=== PATIENT | female | born 1975 | race Caucasian/White ===

== ENCOUNTER 2020-05-29 11:31 | Outpatient (REF) | payer OTHER, SELFPAY ==
[2020-05-29 13:52] LABS: Hematocrit 43.2 % (37-47); Hemoglobin 13.6 g/dl (12.0-16.0); Mean Corpuscular HGB Conc 31.5 g/dl (31.0-35.0); Mean Corpuscular Hemoglobin 28.4 pg (27.0-33.0); Mean Corpuscular Volume 90.2 fL (80-98); Mean Platelet Volume 12.3 fL (9.4-12.3); Platelet Count 201 X10*3/uL (160-400); Red Blood Count 4.79 X10*6/uL (4.20-5.50); Red Cell Distribution Width 12.7 % (11.0-16.0); White Blood Count 6.2 X10*3/uL (4.8-10.8)
[2020-05-29 14:06] LABS: Glucose Urine UA NEG (NEG); Leukocyte Esterase Urine NEG (NEG); Nitrite Urine NEG (NEG); Urine Blood 3+ (NEG); Urine Ketones NEG (NEG); Urine Protein NEG (NEG-TRACE)
[2020-05-29 14:23] LABS: Alanine Aminotransferase 19 U/L (0-31); Albumin Level 3.9 g/dL (3.5-5.0); Alkaline Phosphatase 79 U/L (39-117); Anion Gap 13 (12-20); Aspartate Amino Transferase 26 U/L (5-31); Bilirubin Total 0.4 mg/dL (0.0-1.0); Blood Urea Nitrogen 13 mg/dL (9-16); Calcium 8.6 mg/dL (8.4-10.2); Carbon Dioxide 26 mmol/L (22-29); Chloride 105 mmol/L (96-108); Cholesterol 211 mg/dL; Estimated Glomerular Filt Rate > 60; Glucose Fasting 73 mg/dL (60-99); HDL Cholesterol 79 mg/dL; LDL Cholesterol Calculated 116 mg/dl; Potassium 4.2 mmol/L (3.3-5.1); Sodium 140 mmol/L (135-145); Total Protein 6.6 g/dL (6.5-8.0); Triglycerides 81 mg/dL
[2020-05-29 14:24] LABS: Appearance Urine CLEAR; Color Urine YELLOW
[2020-05-29 15:10] LABS: Bacteria Urine 1+ /LPF; Squamous Epithelial Cell Urine 2+ /LPF; WBC Urine 0-2 /HPF (0-4)
== END 2020-05-29 11:32 | disposition home or self-care (01) ==
LOC: HO.HMGCLDS 11:31
PROVIDERS: PCP Internal Medicine; Visit Provider Internal Medicine
DX: Z00.00 Encounter for general adult medical examination without abnormal findings (principal)
CPT/HCPCS: 36415; 80053; 80061; 81001; 85027

== ENCOUNTER 2021-05-26 06:55 | Outpatient (REF) | payer OTHER, SELFPAY ==
[2021-05-26 11:27] LABS: Hematocrit 43.4 % (37.0-47.0); Hemoglobin 13.7 g/dl (12.0-16.0); Mean Corpuscular HGB Conc 31.6 g/dl (31.0-35.0); Mean Corpuscular Hemoglobin 28.5 pg (27.0-33.0); Mean Corpuscular Volume 90.4 fL (80.0-98.0); Platelet Count 206 X10*3/uL (160-400); Red Cell Distribution Width 12.9 % (11.0-16.0); White Blood Count 5.2 X10*3/uL (4.8-10.8)
[2021-05-26 11:36] LABS: Appearance Urine CLEAR; Color Urine YELLOW; Glucose Urine UA NEG (NEG); Leukocyte Esterase Urine NEG (NEG); Nitrite Urine NEG (NEG); PH 6.5 (5.0-8.0); Specific Gravity - Urine <= 1.005 (1.005-1.025); Urine Blood 2+ (NEG); Urine Ketones NEG (NEG); Urine Protein NEG (NEG-TRACE)
[2021-05-26 11:51] LABS: Bacteria Urine 1+ /LPF; Squamous Epithelial Cell Urine 1+ /LPF; WBC Urine 0-2 /HPF (0-4)
[2021-05-26 13:16] LABS: TSH reflex Free T4 1.72 uIU/mL (0.32-4.0); Vitamin D 25-OH Total 39.8 ng/mL (>30)
[2021-05-26 13:32] LABS: Alanine Aminotransferase 15 U/L (0-31); Albumin Level 3.9 g/dL (3.5-5.0); Alkaline Phosphatase 77 U/L (39-117); Anion Gap 14 (12-20); Aspartate Amino Transferase 23 U/L (5-31); Bilirubin Total 0.4 mg/dL (0.0-1.0); Carbon Dioxide 25 mmol/L (22-29); Cholesterol 227 mg/dL; Estimated Glomerular Filt Rate > 60; Glucose Fasting 81 mg/dL (60-99); HDL Cholesterol 75 mg/dL; LDL Cholesterol Calculated 135 mg/dl; Potassium 4.4 mmol/L (3.3-5.1); Sodium 140 mmol/L (135-145); Total Protein 6.8 g/dL (6.5-8.0); Triglycerides 87 mg/dL
[2021-05-26 14:56] LABS: Blood Urea Nitrogen 16 mg/dL (9-16); Calcium 9.5 mg/dL (8.4-10.2); Chloride 104 mmol/L (96-108)
== END 2021-05-26 06:56 | disposition home or self-care (01) ==
LOC: HO.HMGCLDS 06:55
PROVIDERS: Visit Provider Internal Medicine
DX: Z00.00 Encounter for general adult medical examination without abnormal findings (principal)
CPT/HCPCS: 36415; 80053; 80061; 81001; 82306; 84443; 85027

== ENCOUNTER 2022-08-01 09:08 | Outpatient (REF) | payer OTHER, SELFPAY ==
[2022-08-01 11:30] LABS: Appearance Urine Clear; Color Urine Yellow; Glucose Urine UA Negative (Negative); Leukocyte Esterase Urine Small (1+) (Negative); Nitrite Urine Negative (Negative); Specific Gravity - Urine <= 1.005 (1.005-1.025); UMIC TRIGGER UA YES; Urine Blood Trace (Negative); Urine Ketones Negative (Negative); Urine Protein Negative (Neg-Trace)
[2022-08-01 11:36] LABS: Bacteria Urine Trace (None Seen); Hyaline Casts Urine 0-2 /LPF (0-2); RBC Urine 0-2 /HPF (0-2)
[2022-08-01 11:47] LABS: Hematocrit 43.2 % (37.0-47.0); Hemoglobin 13.8 g/dl (12.0-16.0); Mean Corpuscular HGB Conc 31.9 g/dl (31.0-35.0); Mean Corpuscular Hemoglobin 28.9 pg (27.0-33.0); Mean Corpuscular Volume 90.4 fL (80.0-98.0); Mean Platelet Volume 11.7 fL (9.4-12.3); Platelet Count 191 X10*3/uL (160-400); Red Blood Count 4.78 X10*6/uL (4.20-5.50); Red Cell Distribution Width 13.2 % (11.0-16.0); White Blood Count 4.7 X10*3/uL (4.8-10.8)
[2022-08-01 12:03] LABS: Alanine Aminotransferase 21 U/L (0-31); Albumin Level 3.8 g/dL (3.5-5.0); Alkaline Phosphatase 117 U/L (39-117); Anion Gap 10 (12-20); Aspartate Amino Transferase 24 U/L (5-31); Bilirubin Total 0.4 mg/dL (0.0-1.0); Blood Urea Nitrogen 18 mg/dL (9-16); Carbon Dioxide 25 mmol/L (22-29); Chloride 108 mmol/L (96-108); Cholesterol 200 mg/dL; Estimated Glomerular Filt Rate > 60; Glucose Fasting 74 mg/dL (60-99); HDL Cholesterol 68 mg/dL; LDL Cholesterol Calculated 118 mg/dl; Potassium 4.1 mmol/L (3.3-5.1); Sodium 139 mmol/L (135-145); Total Protein 6.2 g/dL (6.5-8.0); Triglycerides 70 mg/dL
[2022-08-01 12:17] LABS: TSH reflex Free T4 2.06 uIU/mL (0.32-4.0)
== END 2022-08-01 09:09 | disposition home or self-care (01) ==
LOC: HO.HMGCLDS 09:08
PROVIDERS: PCP Internal Medicine; Visit Provider Internal Medicine
DX: Z00.00 Encounter for general adult medical examination without abnormal findings (principal); Z20.2 Contact with and (suspected) exposure to infections with a predominantly sexual mode of transmission
CPT/HCPCS: 36415; 80053; 80061; 81001; 84443; 85027

== ENCOUNTER → 2022-09-16 15:18 | Outpatient (BNVA) | payer OTHER, SELFPAY | PROVIDERS: PCP Internal Medicine; Visit Provider Internal Medicine ==

== ENCOUNTER 2023-01-26 11:53 | Day surgery (SDC) | payer OTHER, SELFPAY ==
[2023-01-20 19:10] VITALS: BMI 31.0
--- NOTE | 2023-01-25 11:43 | HO.ANESPROP2 ---
Documented by User: Khloe Chamberlain NP 01/25/23 11:44 HPI - Anesthesia Eval Consult details Narrative: 47yo F for Colonoscopy PMFSH Active Problems Active Problems: All Active Problems (Updated 01/25/23 @ 11:01 by Jackie Lawler) Colon cancer screening (Acute) Vitamin D deficiency (Acute) Microscopic hematuria (Acute) Normal Pap smear (Acute) Mammogram normal (Acute) Annual physical exam (Acute) Past Medical History Medical History Seasonal allergies Microscopic hematuria Normal Pap smear Mammogram normal Melasma Annual physical exam Family History Family History Father ALS (amyotrophic lateral sclerosis) Mother Diabetes mellitus Mental health disorder Maternal Grandmother Gastric cancer Maternal Grandfather No problems noted. Paternal Grandmother Lung cancer Family/Other Colon cancer Surgical History Surgical History Hx of toe surgery Hx of wisdom tooth extraction Social History Social History Housing: House Alcohol intake: never Patient Tobacco Use Status: Never used Tobacco e-Cigarette/Vaping Use: Never Used Use of substances other than those prescribed or required for medical reasons: No Are you DNR?: No Advance Directives: No Advance Directives Information Provided: Yes Advance Directives on File: No Recently lost weight without trying: No Nutrition Risks: No Nutritional Risk Patient : No Current occupational status: employed Cognitive needs: No Hearing needs: No Vision needs: No Meds Allergies Allergy/AdvReac Type Severity Reaction Status Date / Time penicillin V Allergy Unknown Hives Verified 01/26/23 13:12 Home Medications Medication Instructions Recorded Confirmed Last Taken Type multivitamin 1 tab PO DAILY 08/05/21 01/20/23 Unknown History cholecalciferol (vitamin D3) 50 50 mcg PO DAILY 08/08/22 01/20/23 Unknown History mcg (2,000 unit) capsule berberine-herbal comb no.18 capsule 1 cap PO DAILY 01/20/23 01/20/23 Unknown History estradiol 0.05 mg/24 hr weekly 1 patch transdermal QWEEK 01/20/23 01/20/23 Unknown History transdermal patch magnesium glycinate 100 mg tablet 100 mg PO DAILY 01/20/23 01/20/23 Unknown History progesterone micronized 100 mg 100 mg PO DAILY 01/20/23 01/20/23 Unknown History capsule Exam Exam Date and Time: January 25, 2023 1143 Height,Weight and Vital Signs: Height 5 ft 3 in Weight 79.379 kg Assessment and Plan Assessment Anesthesia Assessment: Chart Reviewed Documented by User: Barrett Fitzgerald MD 01/26/23 14:28 [facility] Past Medical History Medical History Seasonal allergies Microscopic hematuria Normal Pap smear Mammogram normal Melasma Annual physical exam Family History Family History Father ALS (amyotrophic lateral sclerosis) Mother Diabetes mellitus Mental health disorder Maternal Grandmother Gastric cancer Maternal Grandfather No problems noted. Paternal Grandmother Lung cancer Family/Other Colon cancer Family history of problems with anesthesia: No Surgical History Surgical History Hx of toe surgery Hx of wisdom tooth extraction History of Problems with Anesthesia: No Social History Social History Housing: House Alcohol intake: never Patient Tobacco Use Status: Never used Tobacco e-Cigarette/Vaping Use: Never Used Use of substances other than those prescribed or required for medical reasons: No Are you DNR?: No Advance Directives: No Advance Directives Information Provided: Yes Advance Directives on File: No Recently lost weight without trying: No Nutrition Risks: No Nutritional Risk Patient : No Current occupational status: employed Cognitive needs: No Hearing needs: No Vision needs: No Meds Allergies Allergy/AdvReac Type Severity Reaction Status Date / Time penicillin V Allergy Unknown Hives Verified 01/26/23 13:12 Home Medications Medication Instructions Recorded Confirmed Last Taken Type multivitamin 1 tab PO DAILY 08/05/21 01/20/23 Unknown History cholecalciferol (vitamin D3) 50 50 mcg PO DAILY 08/08/22 01/20/23 Unknown History mcg (2,000 unit) capsule berberine-herbal comb no.18 capsule 1 cap PO DAILY 01/20/23 01/20/23 Unknown History estradiol 0.05 mg/24 hr weekly 1 patch transdermal QWEEK 01/20/23 01/20/23 Unknown History transdermal patch magnesium glycinate 100 mg tablet 100 mg PO DAILY 01/20/23 01/20/23 Unknown History progesterone micronized 100 mg 100 mg PO DAILY 01/20/23 01/20/23 Unknown History capsule Exam Airway Mallampati Class: II TM Dist: >3cm Neck ROM: Full Heart: rrr Lungs: cta Assessment and Plan Assessment Anesthesia Assessment: Anesthesia Plan Discussed Final Anesthetic Review Family History of Problems with Anesthesia: No History of Problems with Anesthesia: No NPO: Yes ASA Class: II Final Preanesthetic Review: No Changes in Pt Med Stat, Meds/Allgs Chart Reviewed, Consent Obtained/Reviewed and Anes Risks/Benef Reviewed Patient Risk: Intermediate Procedure Risk: Low Anesthetic Plan Anesthetic Plan: MAC: and Agree w/ Assess. and Plan Disposition: Standard PACU
[2023-01-26 12:27] LABS: UPreg QC Valid YES; Urine Pregnancy NEGATIVE (NEGATIVE)
[2023-01-26 13:09] VITALS: BP 136/64; PULSE 67; RESP 16; TEMP 36.4; O2SAT 100
[2023-01-26] MEDS: Lactated Ringers 1,000 ML 100 ML IVCONT (13:31)
--- NOTE | 2023-01-26 15:22 | MHC.SHP ---
Pre-Procedural Eval Section A Date of Service: 01/26/23 Section B Chief Complaint: Encounter for screening for malignant neoplasm Relevant Family History (Specify if Yes): No Relevant Social History: None Present Medications: see Short Stay Collaborative assessment Medical History: No relevant PMH History of Previous Operations: No relevant previous surgery Allergies: Allergies Allergy/AdvReac Type Severity Reaction Status Date / Time penicillin V Allergy Unknown Hives Verified 01/26/23 13:12 Review of Systems Review of Systems Comment: Ten point ROS negative Exam Exam Comment: Gen appear: No acute distress HEENT: no icterus Chest: No overt resp distress Abd: soft, nontender, nondistended Psych: Stable affect, answering questions appropriately Neuro: A/Ox3 noted to move all extremities spontaneously Ext: no peripheral edema Plan Diagnosis/Plan: Unchanged I have reviewed the history and physical and performed a pertinent physical examination on my patient. No changes have occurred unless specified. Time Spent With Patient Time: Total time managing care of this patient today ____ minutes.
--- NOTE | 2023-01-26 15:53 | P.OP_ITS ---
Operative Note Operative Note Date of Service: 01/26/23 Narrative: Procedure: Colonoscopy 3 Indication: Screening Endoscopist: Nhi Mc MD Anesthesia Provider: Dr Zamora Anesthesia type: MAC Instrument: Olympus [id number]-[id number] Consent: Indication, risks vs benefits, and alternatives were discussed with the patient who gave written informed consent to proceed. EKG, pulse, pulse oximetry and blood pressure were monitored throughout the procedure. Please see anesthesia flowsheet. Procedure: The patient was brought to the procedure room and placed in the left lateral decubitus position. IV medications were administered by the anesthesia provider in attendance. A digital rectal exam was performed which was normal. A distal attachment cap was affixed to the tip of the scope and the colonoscope was then inserted through the anus and advanced through the colon to the cecum at 80 cm,and terminal ileum. Mucosa was carefully examined under high definition white light as the instrument was slowly withdrawn in a retrograde panoramic fashion. Retroflexion was performed in rectum. The procedure was not difficult. There were no immediate obvious complications. The quality of the prep was BBPS: 2+3+3 = adequate Withdrawal time 8 minutes. Limitations: No limitations. Findings: Mucosa: Normal to cecum and terminal ileum. Protruding lesions: * Medium internal hemorrhoids [without] stigmata of recent bleeding. Impression: 1. Normal colon and terminal ileum mucosa 2. Internal hemorrhoids Recommendations: - Repeat colonoscopy in 10 years
[2023-01-26 16:01] VITALS: BP 108/41; PULSE 73; RESP 16; TEMP 36.2; O2SAT 98
[2023-01-26 16:16] VITALS: BP 113/67; PULSE 68; RESP 14; TEMP 36.4; O2SAT 100
[2023-01-26 16:31] VITALS: BP 117/70; PULSE 69; RESP 16; TEMP 36.4; O2SAT 100
== END 2023-01-26 16:32 | disposition home or self-care (01) ==
PROVIDERS: Nurse Practitioner; PCP Internal Medicine; Visit Provider Internal Medicine
PROC: 0DJD8ZZ Inspection of Lower Intestinal Tract, Via Natural or Artificial Opening Endoscopic (ICD-10-PCS; CPT 45378; principal; 2023-01-26 13:50)
DX: Z12.11 Encounter for screening for malignant neoplasm of colon (principal); K64.8 Other hemorrhoids; E55.9 Vitamin D deficiency, unspecified; L81.1 Chloasma; Z79.899 Other long term (current) drug therapy; Z88.0 Allergy status to penicillin
CPT/HCPCS: 45378; 81025

== ENCOUNTER → 2023-01-26 11:53 | Outpatient (BNV) | payer OTHER, SELFPAY | PROVIDERS: PCP Internal Medicine; Visit Provider Internal Medicine | DX: Z12.11 Encounter for screening for malignant neoplasm of colon (principal); K64.8 Other hemorrhoids | CPT/HCPCS: 45378 ==

== ENCOUNTER 2023-08-02 07:31 | Outpatient (REF) | payer OTHER, SELFPAY ==
[2023-08-02 10:20] LABS: MANUAL DIFF FLAG NO
[2023-08-02 10:38] LABS: Basophils Percent Auto 0.2 % (0-2); Eosinophils Absolute Auto 0.1 X10*3/uL (0.0-0.4); Eosinophils Percent Auto 1.9 % (0-4); Hematocrit 44.5 % (37.0-47.0); Hemoglobin 14.5 g/dl (12.0-16.0); Imm Gran Abs Auto 0.01 X10*3/uL (0.00-0.03); Imm Gran Pct Auto 0.2 % (0.0-0.4); Lymphocytes Absolute Auto 1.6 X10*3/uL (1.2-4.9); Mean Corpuscular HGB Conc 32.6 g/dl (31.0-35.0); Mean Corpuscular Hemoglobin 29.6 pg (27.0-33.0); Mean Corpuscular Volume 90.8 fL (80.0-98.0); Mean Platelet Volume 11.5 fL (9.4-12.3); Monocytes Absolute Auto 0.3 X10*3/uL (0.1-1.2); Monocytes Percent Auto 5.5 % (2-11); Neutrophils Absolute Auto 2.7 x10*3/uL (2.0-8.3); Neutrophils Percent Auto 57.2 % (45-73); Platelet Count 185 X10*3/uL (160-400); Red Cell Distribution Width 12.9 % (11.0-16.0); White Blood Count 4.7 X10*3/uL (4.8-10.8)
[2023-08-02 10:50] LABS: Alanine Aminotransferase 21 U/L (0-31); Alkaline Phosphatase 91 U/L (39-117); Anion Gap 10 (12-20); Aspartate Amino Transferase 24 U/L (5-31); Bilirubin Total 0.4 mg/dL (0.0-1.0); Blood Urea Nitrogen 15 mg/dL (9-16); Calcium 9.3 mg/dL (8.4-10.2); Carbon Dioxide 28 mmol/L (22-29); Chloride 105 mmol/L (96-108); Cholesterol 195 mg/dL (<200); Estimated Glomerular Filt Rate > 60; Glucose Fasting 76 mg/dL (60-99); HDL Cholesterol 66 mg/dL (>40); LDL Cholesterol Calculated 117 mg/dL (<100); Sodium 139 mmol/L (135-145); Total Protein 7.1 g/dL (6.5-8.0); Triglycerides 60 mg/dL (<150)
[2023-08-02 11:25] LABS: TSH reflex Free T4 2.13 uIU/mL (0.32-4.0); Vitamin D 25-OH Total 49.4 ng/mL (>30)
== END 2023-08-02 07:32 | disposition home or self-care (01) ==
LOC: HO.HMGCLDS 07:31
PROVIDERS: PCP Internal Medicine; Visit Provider Internal Medicine
DX: Z00.00 Encounter for general adult medical examination without abnormal findings (principal); Z13.6 Encounter for screening for cardiovascular disorders; E55.9 Vitamin D deficiency, unspecified
CPT/HCPCS: 36415; 80053; 80061; 82306; 84443; 85025

== ENCOUNTER 2023-08-14 10:14 | Outpatient (AMB) | payer OTHER, SELFPAY ==
[2023-08-14 10:50] VITALS: BP 120/80; PULSE 78; O2SAT 100; BMI 31.6
--- NOTE | 2023-08-14 10:50 | MHC.PC.OV ---
Vital Signs 08/14/23 10:50 Height 5 ft 3 in Weight 178 lb 4 oz BMI 31.6 BP 120/80 Blood Pressure Location Lt brachial Position Sitting Pulse 78 Pulse Source Pulse Oximeter Pulse Oximetry (%) 100 Oxygen Delivery Method Room Air Intake Visit Reasons: annual follow up Allergies penicillin V Allergy (Unknown, Verified 08/14/23 10:52) Hives Medication List - Last Reconciled 08/14/23 by Nichelle Blanton MD cholecalciferol (vitamin D3) 50 mcg PO DAILY estradiol 1 patch transdermal QWEEK magnesium glycinate 200 mg PO DAILY multivitamin 1 tab PO DAILY progesterone micronized 100 mg PO DAILY Tobacco use date assessed: 08/14/23 Dental Screening Dental Screen Date: 08/14/23 Did you have a dental visit in the last 12 months?: Yes Did you have a dental problem in the last 6 months where you did not have access to dental care?: No Was dental information given to patient?: Patient has dentist HPI annual follow up HPI Details Pt presents for PE. Patient is concerned about not being able to lose weight. She had tried weight management program with nutritional support and is considering semaglutide injections. [facility] Medical History Seasonal allergies Microscopic hematuria Normal Pap smear Mammogram normal Melasma Annual physical exam Surgical History Hx of toe surgery Hx of wisdom tooth extraction Family History Father ALS (amyotrophic lateral sclerosis) Mother Diabetes mellitus Mental health disorder Maternal Grandmother Gastric cancer Maternal Grandfather No problems noted. Paternal Grandmother Lung cancer Family/Other Colon cancer Social History Housing: House Alcohol intake: never Patient Tobacco Use Status: Never used Tobacco e-Cigarette/Vaping Use: Never Used Current occupational status: employed Cognitive needs: No Hearing needs: No Vision needs: No Questionnaire PHQ-9 Over the last 2 weeks, how often have you been bothered by any of the following problems? 1. Little interest or pleasure in doing things: not at all 2. Feeling down, depressed, or hopeless: not at all 3. Trouble falling or staying asleep, or sleeping too much: not at all 4. Feeling tired or having little energy: not at all 5. Poor appetite or overeating: not at all 6. Feeling bad about yourself - or that you are a failure or have let yourself or your family down: not at all 7. Trouble concentrating on things, such as reading the newspaper or watching television: not at all 8. Moving or speaking so slowly that other people could have noticed. Or the opposite - being so fidgety or restless that you have been moving around a lot more than usual: not at all 9. Thoughts that you would be better off or of hurting yourself in some way: not at all Total score: 0 Depression Screening Interpretation: Negative Depression Screening Done: Yes Source: Developed by Drs. Hu Pritchett, Tabitha Ribera, Henry Parks and colleagues, with an educational fabien from [employer] Thrive Questionnaire Date Thrive assessed: 08/08/22 AUDIT C Alcohol Use Questionnaire (AUDIT-C) 1. How often do you have a drink containing alcohol?: Never 3. How often do you have six or more drinks on one occasion?: Never Total Score: 0 Score Reviewed/Action Taken: Yes MARQUEZ-7 AMB Questionnaire MARQUEZ-7 Date MARQUEZ - 7 assessed: 08/08/22 Source: Developed by Drs. Hu Pritchett, Tabitha Ribera, Henry Parks and colleagues, with an educational fabien from [employer] Review of Systems Const All systems reviewed & are unremarkable except as noted in HPI and below Reports no additional complaints Eyes Reports no additional complaints ENT Reports no additional complaints Card Reports no additional complaints Resp Reports no additional complaints GI Reports no additional complaints Reports no additional complaints Musc Reports no additional complaints Physical exam (Primary Care) Vital Signs: Last Vital Signs Pulse 78 08/14/23 10:50 BP 120/80 08/14/23 10:50 Pulse Ox 100 08/14/23 10:50 Oxygen Delivery Method Room Air 08/14/23 10:50 BMI result Body Mass Index 31.6 Tobacco/Smoking Status: Tobacco use Status Tobacco use date assessed 08/14/23 08/14/23 10:56 Patient Tobacco Use Status Never used Tobacco 08/14/23 10:56 e-Cigarette/Vaping Use Never Used 08/14/23 10:56 Depression Screening Interpretation: Negative Thrive Assessment: Date of Thrive Assessment Date Thrive assessed 08/08/22 08/14/23 10:56 Const General: no acute distress HENMT Head: Yes normal to inspection and Yes contusion Ears: hearing grossly normal bilaterally General nose exam: Normal external nose present Mouth: Normal oral and palatal mucosa present Throat: Yes posterior oropharynx normal Eyes General: appearance normal, both eyes and all related structures Neck Neck: Yes no lymphadenopathy and Yes supple Resp Effort & Inspection: normal respiratory effort Auscultation: clear to auscultation bilaterally Cardio Rhythm: regular rhythm Heart sounds: S1 normal heart sound present and S2 normal heart sound present GI Inspection: Yes normal to inspection Palpation (GI): Soft to palpation Percussion: Yes normal to percussion Auscultation: normal bowel sounds Assessment and Plan Assessment & Plan (1) Mammogram normal: Comment: 2023 [facility] (2) Normal Pap smear: Comment: [employer] 2020, 2021 (3) Colon cancer screening: Comment: colonoscopy 01/2023 Code(s): Z12.11 - Encounter for screening for malignant neoplasm of colon (4) Annual physical exam: Code(s): Z00.00 - Encounter for general adult medical examination without abnormal findings Plan: Well-balanced diet regular exercise discussed with the patient she is up-to-date with mammogram colonoscopy and 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 Physical in 1 year Orders: Orders TSH reflex Free T4 1 Year Z00.00 - Encounter for general adult medical examination without abnormal findings Comprehensive [place]. Panel Fast 1 Year Z00.00 - Encounter for general adult medical examination without abnormal findings Complete Blood Count Auto Diff 1 Year Z00.00 - Encounter for general adult medical examination without abnormal findings Lipid Panel 1 Year Z00.00 - Encounter for general adult medical examination without abnormal findings Vitamin D 25-OH Total 1 Year Z00.00 - Encounter for general adult medical examination without abnormal findings Coding Level of Care Code Est Pt Prev Care 40-64y(92243) Diagnoses Mammogram normal Normal Pap smear Z12.4 Colon cancer screening Z12.11 Annual physical exam Z00.00
== END 2023-08-14 11:37 | disposition home or self-care (01) ==
PROVIDERS: Visit Provider Internal Medicine
DX: Z12.4 Encounter for screening for malignant neoplasm of cervix (principal); Z12.11 Encounter for screening for malignant neoplasm of colon; Z00.00 Encounter for general adult medical examination without abnormal findings
CPT/HCPCS: 99396

== ENCOUNTER 2024-08-28 07:39 | Outpatient (REF) | payer OTHER, SELFPAY ==
[2024-08-28 09:50] LABS: MANUAL DIFF FLAG NO
[2024-08-28 10:06] LABS: Basophils Percent Auto 0.2 % (0-2); Eosinophils Absolute Auto 0.1 X10*3/uL (0.0-0.4); Eosinophils Percent Auto 1.9 % (0-4); Hematocrit 42.9 % (37.0-47.0); Hemoglobin 13.8 g/dl (12.0-16.0); Imm Gran Abs Auto 0.01 X10*3/uL (0.00-0.03); Imm Gran Pct Auto 0.2 % (0.0-0.4); Lymphocytes Absolute Auto 1.4 X10*3/uL (1.2-4.9); Mean Corpuscular HGB Conc 32.2 g/dl (31.0-35.0); Mean Corpuscular Hemoglobin 29.1 pg (27.0-33.0); Mean Corpuscular Volume 90.5 fL (80.0-98.0); Mean Platelet Volume 11.5 fL (9.4-12.3); Monocytes Absolute Auto 0.3 X10*3/uL (0.1-1.2); Monocytes Percent Auto 5.3 % (2-11); Neutrophils Percent Auto 62.4 % (45-73); Platelet Count 202 X10*3/uL (160-400); Red Blood Count 4.74 X10*6/uL (4.20-5.50); Red Cell Distribution Width 12.6 % (11.0-16.0); White Blood Count 4.7 X10*3/uL (4.8-10.8)
[2024-08-28 10:57] LABS: Alanine Aminotransferase 22 U/L (0-31); Albumin Level 4.1 g/dL (3.5-5.0); Alkaline Phosphatase 74 U/L (39-117); Anion Gap 14 (12-20); Aspartate Amino Transferase 30 U/L (5-31); Bilirubin Total 0.4 mg/dL (0.0-1.0); Blood Urea Nitrogen 18 mg/dL (9-16); Calcium 8.9 mg/dL (8.4-10.2); Carbon Dioxide 24 mmol/L (22-29); Chloride 105 mmol/L (96-108); Cholesterol 167 mg/dL (<200); Estimated Glomerular Filt Rate > 60; Glucose Fasting 79 mg/dL (60-99); HDL Cholesterol 62 mg/dL (>40); LDL Cholesterol Calculated 98 mg/dL (<100); Sodium 139 mmol/L (135-145); TSH reflex Free T4 1.74 uIU/mL (0.32-4.0); Triglycerides 37 mg/dL (<150); Vitamin D 25-OH Total 49.7 ng/mL (>30)
== END 2024-08-28 07:40 | disposition home or self-care (01) ==
LOC: HO.HMGCLDS 07:39
PROVIDERS: PCP Internal Medicine; Visit Provider Internal Medicine
DX: Z00.00 Encounter for general adult medical examination without abnormal findings (principal); Z13.6 Encounter for screening for cardiovascular disorders
CPT/HCPCS: 36415; 80053; 80061; 82306; 84443; 85025

== ENCOUNTER 2024-09-06 08:28 | Outpatient (AMB) | payer OTHER, SELFPAY ==
--- NOTE | 2024-09-06 08:31 | A.OFFPC_ITS ---
Vital Signs 09/06/24 08:33 Height 5 ft 3 in Weight 173 lb BMI 30.6 BP 112/80 Blood Pressure Location Lt brachial Position Sitting Respiration 20 Pulse 79 Pulse Source Pulse Oximeter Temp 98.1 F Temp Source Oral Pulse Oximetry (%) 99 Intake Visit Reasons: Annual PE Intake Note: Pt is here today for her PE Allergies penicillin V Allergy (Unknown, Verified 09/06/24 08:31) Hives Medication List - Last Reconciled 09/06/24 by Nichelle Blanton MD cholecalciferol (vitamin D3) 50 mcg PO DAILY estradiol 1 patch transdermal QWEEK magnesium glycinate 200 mg PO DAILY mecobalamin (vitamin B12) mcg PO multivitamin 1 tab PO DAILY progesterone micronized 100 mg PO DAILY semaglutide (weight loss) (Wegovy) 0.25 mg subcut QWEEK Tobacco use date assessed: 09/06/24 Dental Screening Dental Screen Date: 09/06/24 Did you have a dental visit in the last 12 months?: Yes Did you have a dental problem in the last 6 months where you did not have access to dental care?: No Was dental information given to patient?: Patient has dentist HPI Annual PE HPI Details Pt presents for PE. Pt c/o LBP left side ache on and off for 2 weeks, worse after sitting for long time in a chair. Patient denies abdominal pain pain radiating to lower extremities change in bowel or bladder habits. She has been in weight management program for the last 6 months and was started on Wegovy. She lost 13 lbs. Patient has been exercising 3 times a week. [facility] Medical History (Updated 09/06/24 @ 19:03 by Nichelle Blanton MD) Seasonal allergies Microscopic hematuria Normal Pap smear Mammogram normal Melasma Annual physical exam Surgical History (Updated 09/06/24 @ 19:03 by Nichelle Blanton MD) Hx of colonoscopy Hx of toe surgery Hx of wisdom tooth extraction Family History Father ALS (amyotrophic lateral sclerosis) Mother Diabetes mellitus Mental health disorder Maternal Grandmother Gastric cancer Maternal Grandfather No problems noted. Paternal Grandmother Lung cancer Family/Other Colon cancer Social History Housing: House Alcohol intake: never Patient Tobacco Use Status: Never used Tobacco e-Cigarette/Vaping Use: Never Used Current occupational status: employed Cognitive needs: No Hearing needs: No Vision needs: No Questionnaire PHQ-9 Over the last 2 weeks, how often have you been bothered by any of the following problems? 1. Little interest or pleasure in doing things: not at all 2. Feeling down, depressed, or hopeless: not at all 3. Trouble falling or staying asleep, or sleeping too much: not at all 4. Feeling tired or having little energy: not at all 5. Poor appetite or overeating: not at all 6. Feeling bad about yourself - or that you are a failure or have let yourself or your family down: not at all 7. Trouble concentrating on things, such as reading the newspaper or watching television: not at all 8. Moving or speaking so slowly that other people could have noticed. Or the opposite - being so fidgety or restless that you have been moving around a lot more than usual: not at all 9. Thoughts that you would be better off or of hurting yourself in some way: not at all Total score: 0 Depression Screening Interpretation: Negative Depression Screening Done: Yes 75034 - PHQ-9 Billing: Yes Source: Developed by Drs. Hu Pritchett, Tabitha Ribera, Henry Parks and colleagues, with an educational fabien from [employer]. Thrive Questionnaire Date Thrive assessed: 09/06/24 I am a: Patient What is your living situation today?: I have a steady place to live Within the past 12 months, did the food you bought not last and you didn't have the money to get more?: Never true Within the past 12 months, did you worry whether your food would run out before you got money to buy more?: Never true Do you have trouble paying for medicines?: No Do you have trouble getting transportation to medical appointments?: No Do you have trouble paying your heating and electricity bill?: No Do you have trouble taking care of your child, family member or friend?: No Do you have trouble with day-to-day activities such as bathing, preparing meals, shopping, managing finances, etc.?: No Are you currently unemployed and looking for a job?: No Are you interested in more education?: No Please select the resources that you would like help with: None Currently or been in a relationship where the following occur: No concerns reported THRIVE Score: 0 AUDIT C Alcohol Use Questionnaire (AUDIT-C) 1. How often do you have a drink containing alcohol?: Never Total Score: 0 MARQUEZ-7 AMB Questionnaire MARQUEZ-7 Date MARQUEZ - 7 assessed: 09/06/24 Feeling nervous, anxious, or on edge: 0 = Not at all Not being able to stop or control worryin = Not at all Worrying too much about different things: 0 = Not at all Trouble relaxin = Not at all Being so restless that it is hard to sit still: 0 = Not at all Becoming easily annoyed or irritable: 0 = Not at all Feeling afraid as if something awful might happen: 0 = Not at all Total MARQUEZ-7 score (0-4 normal; 5-9 mild; 10-14 moderate; 15-21 severe): 0 Source: Developed by Drs. Hu Pritchett, Tabitha Ribera, Henry Parks and colleagues, with an educational fabien from [employer]. Review of Systems Const All systems reviewed & are unremarkable except as noted in HPI and below Eyes Reports no additional complaints Card Reports no additional complaints Resp Reports no additional complaints GI Reports no additional complaints Reports no additional complaints Physical exam (Primary Care) Vital Signs: Last Vital Signs Temp 98.1 F 09/06/24 08:33 Pulse 79 09/06/24 08:33 Resp 20 09/06/24 08:33 BP 112/80 09/06/24 08:33 Pulse Ox 99 09/06/24 08:33 BMI result Body Mass Index 30.6 Tobacco/Smoking Status: Tobacco use Status Tobacco use date assessed 09/06/24 09/06/24 08:37 Patient Tobacco Use Status Never used Tobacco 09/06/24 08:37 e-Cigarette/Vaping Use Never Used 09/06/24 08:37 PHQ-9: PHQ-9 Score PHQ-9: Total score 0 09/06/24 08:48 Depression Screening Interpretation: Negative Thrive Assessment: Date of Thrive Assessment Date Thrive assessed 09/06/24 09/06/24 08:37 Currently or been in a relationship where the following occur: No concerns reported Const General: no acute distress HENMT Head: Yes normal to inspection Mouth: Normal oral and palatal mucosa present Eyes General: appearance normal, both eyes and all related structures Neck Neck: Yes no lymphadenopathy and Yes supple Resp Effort & Inspection: normal respiratory effort Auscultation: clear to auscultation bilaterally Cardio Rhythm: regular rhythm Heart sounds: S1 normal heart sound present and S2 normal heart sound present GI Inspection: Yes normal to inspection Palpation (GI): Soft to palpation Percussion: Yes normal to percussion Auscultation: normal bowel sounds General: Yes no CVA tenderness Back/Spine/Pelvis Back: no CVA tenderness Thoracic/Lumbar Spine: thoracic and lumbar spine normal to inspection, No paraspinal muscle tenderness and No lumbar spinal tenderness Coding Level of Care Code Est Pt Prev Care 40-64y(27804) Diagnoses Annual physical exam Z00.00 Microscopic hematuria R31.29 Overweight E66.3 Additional Codes PHQ-9 - 13123 - PHQ-9 Billing: Yes ([id number]) Assessment & Plan Assessment & Plan (1) Annual physical exam: Code(s): Z00.00 - Encounter for general adult medical examination without abnormal f indings Category: Medical Plan: Well-balanced diet regular exercise decreasing caloric intake discussed with the patient. She is up-to-date with the mammogram, Pap smear by button pusher and colonoscopy (2) Microscopic hematuria: Code(s): R31.29 - Other microscopic hematuria Category: Medical Plan: Repeat UA and obtain renal ultrasound (3) Overweight: Comment: in weight management Code(s): E66.3 - Overweight Category: Medical Plan: On Wegovy Orders: Orders UA w Microscopic Today R31.29 - Other microscopic hematuria, Z00.00 - Encounter for general adult medical examination without abnormal findings Comprehensive [place]. Panel Fast 1 Year E55.9 - Vitamin D deficiency, unspecified, Z00.00 - Encounter for general adult medical examination without abnormal findings Complete Blood Count Auto Diff 1 Year E55.9 - Vitamin D deficiency, unspecified, Z00.00 - Encounter for general adult medical examination without abnormal findings Lipid Panel 1 Year E55.9 - Vitamin D deficiency, unspecified, Z00.00 - Encounter for general adult medical examination without abnormal findings Vitamin D 25-OH Total 1 Year E55.9 - Vitamin D deficiency, unspecified, Z00.00 - Encounter for general adult medical examination without abnormal findings US renal BI Today R31.29 - Other microscopic hematuria, Z00.00 - Encounter for general adult medical examination without abnormal findings TSH reflex Free T4 1 Year E55.9 - Vitamin D deficiency, unspecified, Z00.00 - Encounter for general adult medical examination without abnormal findings
[2024-09-06 08:33] VITALS: BP 112/80; PULSE 79; RESP 20; TEMP 36.7; O2SAT 99; BMI 30.6
--- OUTSIDE RECORDS SUMMARY | 2024-09-06 08:36 | XMS_ITS | Patient Health Record ---
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 Name Role Phone Nichelle Blanton Primary Care Provider BRADLEY Pringle Unavailable [phone] Allergies Allergen (clinical drug ingredient) Drug/Non Drug Allergy documented on EMR Reaction Allergy Type Onset Date Status Penicillin Unknown Drug Allergy Active Results Component Value Reference Range Notes TSH+T3+Free T4+T3 Free Reviewed date:07/29/2024 08:17:59 AM Interpretation: Performing Lab:[facility] [place], [address] [facility], Phone - [phone], Director - MDJodry Notes/Report: TSH-ICMA 2.0 Reference Range: Non- Adult 0.450-4.500 First Trimester 0.100-4.000 Second Trimester 0.200-4.000 Third Trimester 0.300-4.500 Triiodothyronine (T-3), Serum 90 Reference Range: Adults: 55 - 170 Free T-3 2.8 Reference Range: >=20y: 2.0 - 4.4 Free T4 by Dialysis/Sky Cap 1.2 This test was developed and its performance characteristics determined by [facility]. It has not been cleared or approved by the Food and Drug Administration. Reference Range: Pubertal Children and Adults: 0.8 - 1.7 Comp. Metabolic Panel (14)-[id number] Reviewed date:07/29/2024 08:17:59 AM Interpretation: Performing Lab:[facility] [place], [address], [place], Phone - [phone], Director - MDJodry Notes/Report: Glucose 84 70-99 mg/dL BUN 20 6-24 mg/dL Creatinine 0.67 0.57-1.00 mg/dL eGFR 106 >59 mL/min/1.73 BUN/Creatinine Ratio 30 9-23 Sodium 140 134-144 mmol/L Potassium 4.5 3.5-5.2 mmol/L Chloride 104 96-106 mmol/L Carbon Dioxide, Total 21 20-29 mmol/L Calcium 9.2 8.7-10.2 mg/dL Protein, Total 6.5 6.0-8.5 g/dL Albumin 4.1 3.8-4.9 g/dL Globulin, Total 2.4 1.5-4.5 g/dL Bilirubin, Total 0.3 0.0-1.2 mg/dL Alkaline Phosphatase 86 44-121 IU/L AST (SGOT) 26 0-40 IU/L ALT (SGPT) 19 0-32 IU/L CBC With Differential/Platel et-[id number] Reviewed date:07/29/2024 08:17:59 AM Interpretation: Performing Lab:[facility] [place], [address], [place], Phone - [phone], Director - Nayla Notes/Report: WBC 4.3 3.4-10.8 x10E3/uL RBC 4.73 3.77-5.28 x10E6/uL Hemoglobin 13.8 11.1-15.9 g/dL Hematocrit 42.2 34.0-46.6 % MCV 89 79-97 fL MCH 29.2 26.6-33.0 pg MCHC 32.7 31.5-35.7 g/dL RDW 12.3 11.7-15.4 % Platelets 197 150-450 x10E3/uL Neutrophils 59 Not Estab. % Lymphs 33 Not Estab. % Monocytes 7 Not Estab. % Eos 1 Not Estab. % Basos 0 Not Estab. % Neutrophils (Absolute) 2.5 1.4-7.0 x10E3/uL Lymphs (Absolute) 1.4 0.7-3.1 x10E3/uL Monocytes(Absolute) 0.3 0.1-0.9 x10E3/uL Eos (Absolute) 0.1 0.0-0.4 x10E3/uL Baso (Absolute) 0.0 0.0-0.2 x10E3/uL Immature Granulocytes 0 Not Estab. % Immature Grans (Abs) 0.0 0.0-0.1 x10E3/uL Hemoglobin [id number] Reviewed date:07/29/2024 08:17:59 AM Interpretation: Performing Lab:[facility], [address], [place], Phone - [phone], Director - Nayla Notes/Report: Hemoglobin A1c 5.3 4.8-5.6 % . Prediabetes: 5.7 - 6.4 Diabetes: >6.4 Glycemic control for adults with diabetes: <7.0 Reason For Referral No Information Medications Medication SIG (Take, Route, Frequency, Duration) Notes Start Date End Date Status B12 Active Lincoln 3 Active Wegovy 0.25 MG/0.5ML 0.5 ML SUBCUTANEOUS LY ONE TIME PER WEEK for 28 Active Vitamin D3 50 MCG (1999) 1 capsule Orally Once a day Active Estradiol 0.05 MG/24HR APPLY 1 PATCH BY TRANSDERMAL ROUTE EVERY WEEK Transdermal for 84 Days Active Multi For Her Active Magnesium Glycinate 400mg qd Active Ondansetron HCl 4 MG 1 tablet Orally Onc e a day for 30 days 06/27/2024 Active Progesterone 100 MG TAKE 1 CAPSULE BY UT EVERY DAY Oral for 90 Days Active Social History Tobacco Use: Social History Observation Description Date Details (start date - stop date) Never Smoker NA - NA Tobacco Use/Smoking Question Answer Notes Are you a nonsmoker Problems Problem Type SNOMED Code ICD Code Onset Dates Problem Status W/U Status Risk Notes Problem Adult health examination (278443596) Adult general medical exam (Z00.00) Active confirmed Problem Diabetes mellitus screening (521285155) Diabetes mellitus screening (Z13.1) Active confirmed Problem 069833928 Obesity (BMI 30-39.9) (E66.9) Active confirmed Problem 490229660 BMI 31.0-31.9,adult (Z68.31) Active confirmed Problem 971139885 BMI 30.0-30.9,adult (Z68.30) Active confirmed Problem 043629169 Overweight (BMI 25.0-29.9) (E66.3) Active confirmed Problem Endocrine/metabo lic screening (472874270) Encounter for screening for endocrine disorder (Z13.29) Active confirmed Problem Lipid screening (937239913) Lipid screening (Z13.220) Active confirmed Vital Signs Heart Rate 78 /min 08/22/2024 Oximetry 99 % 08/22/2024 Blood pressure diastolic 70 mm Hg 08/22/2024 Height 63 in 08/22/2024 Blood pressure systolic 110 mm Hg 08/22/2024 Weight 167.2 lbs 08/22/2024 BMI 29.61 kg/m2 08/22/2024 Encounters Encounter Location Date Provider Diagnosis [facility] [address] [place] [address] 06/26/2024 BRADLEY GISSELLE Obesity (BMI 30-39.9 ) E66.9 ; BMI 31.0-31.9,adult Z68.31 and Hormone replacement therapy (HRT) Z79.[address] [facility] [address] [place], [place] 07/25/2024 BRADLEY GISSELLE Obesity (BMI 30-39.9 ) E66.9 and BMI 30.0-30.9,adult Z68.30 [facility] [address] [place], [place] 08/22/2024 BRADLEY GISSELLE Overweight (BMI 25.0-29.9) E66.3 ; BMI 29.0-29.9,adult Z68.29 and Encounter for examination of blood pressure without abnormal findings Z01.30 [facility] [address] [place], [place] 06/27/2024 BRADLEY GISSELLE [facility] [address] [place] [id number] 06/26/2024 BRADLEY GISSELLE Assessments Encounter Date Diagnosis (ICD Code) Assessment Notes Treatment Notes Treatment Clinical Notes Section Notes 06/26/2024 Obesity (BMI 30-39.9) (ICD-10 - E66.9) Cherie is a 49-year-old female present today for weight management consultation. 06/26/2024: Wt: 179 lbs, BMI: 31.7 we will try to submit for Wegovy 0.25 mg weekly injections. Discussed lifestyle modifications in addition to weight loss medications. Discussed Seca scale where patient has average, but low muscle mass in upper body. Recommend 2 days of using Bowflex elliptical and 2 days of upper body strength training in addition to increasing protein with a daily goal of 80-100 g of protein daily. Recommend increasing steps with 8 to 10K steps daily. Plan to order baseline labs. Plan follow-up in 4 weeks. #Hormone replacement: Patient on estradiol patch and progesterone. Plan to continue with [employer] recommendations. Patient was reassured and welcomed to the practice. We discussed that we stress a hollistic medical approach with emphasis on lifestyle modification. Patient was informed that a healthy lifestyle with exercise and good eating habits can help reduce his risk of medical complications. Patient is explained that obesity increases his risk of diabetes, cardiovascular disease, or organ damage. We spent a lot of time discussing the relationship between food, exercise, sleep, mental health and obesity. Patient was counseled on the importance EATING local, organic food when possible. Patient was educated on clean 15 and dirty dozen. I provided information about reading books called The Food Rules by John Bernstein and Eat Fat Get Lean by Dr Vikash Sherman. Self education is important in the journey for weight management. Patient was offered diagnostic testing/ SECA scale. We want to measure visceral adiposity, advanced body composition, adverse lipids, fatty acid balance, risk for heart disease and atherosclerosis, markers of inflammation and genetic susceptibility. Patient was counseled on weight management and was advised to lose weight using A. Meal Replacement Products Patient was educated on the replacement products called optifast. This is a good way of taking fixed amount of calories. It has been shown in studies to be ineffective weight management tool. This however has to be coupled with lifestyle intervention as well as laboratory data and EKG monitoring. It is impossible to know how a person will tolerate complete meal replacement. The side effects of meal replacement and weight loss could include syncopal attacks, dizziness, gallstones, potential cholecystectomy, possible heart attack and even . The benefits of meal replacement would be potential weight loss but no guarantees can be made. Meal replacement products are not covered by insurance. Once the patient has bought these products we cannot return them B. Lifestyle management which includes several strategies as below 1. Eat a low carbohydrate good fat good protein diet. Eliminate refined carbohydrates from the diet. Limit sugared beverages. Eat local organic when possible. Cook your own meals. Read food labels. Focus on healthy snacks. Portion control and food with low glycemic index 2. Exercise regularly. Try to get at least 6000 steps a day. Use a predominant to track activity level. Consider using apps like 7 minute excercise, EmboMedicspal, lose it, stick as needed for self-monitoring and weight management. Consider group exercises. Consider hiring a personal financial advisor. Regular exercise is griffin to sustainable health and prevents as a buffer against weight regain 3. Sleep is most important for healing. Try to sleep at least 6-8 hours a night. A good quality sleep needs a sleep ritual with ideal room temperature of around 68. It might help to take a shower and have no electronics in the room and sleep in a very dark room without artificial light. Start sleep routine and get up early in the morning and go to bed on time. 4. Make a social connection. Surround yourself with positive people with positive energy. Connect with friends and family. 5. Get into the habit of meditating and mindfulness while doing everything. 6. Go outside and connect with nature. C. Prescription medications Patient was educated on the use of prescription medications for medical weight loss. This is a growing list and includes phentermine, Topamax, Qsymia, contrave, belviq and saxenda, wegovy etc. All prescription medications could have side effects including but not limited to kidney stones, seizure disorder, cardiac arrhythmias, heart attack, pancreatitis, GI effects, Etc. Patient was encouraged to read the prescription insert and discuss with their pharmacist to make an informed decision about taking medication and know that these medications are being prescribed with good intentions and we do not know how a patient would react to her medication. Some medications are FDA approved for weight loss and there is also off label use depending on patient's inability to afford medications in an attempt to lose weight. D. Behavioral counseling was done to establish a relationship between food and an mood. Patient was provided information about local counseling and psychiatry and Dr Lisa at [facility]. We would like to cover regular topics and build on low glycemic eating exercise mindful eating, using yoga and meditation along with deep breathing and connecting with friends and family. E. MASS PAT reviewed, Patient's current medications were reviewed and opinion was given on medication that can cause weight gain and can be substituted F. Patient was assessed for risk with obesity including and not limiting to atherosclerosis, heart disease, stroke, kidney disease, restrictive lung disease, irritable bowel syndrome and overall mortality. Risk of developing prediabetes diabetes and metabolic syndrome was discussed G. Therapeutic plan: We have decided to make therapeutic plan which would include choosing wisely on calories restricting portion getting active, tracking weight, getting good quality sleep and working on time management H. Patient will follow up in 4 weeks for weight management Total time spent today was 60 minutes of which greater than 50% was spent on coordinating and counseling Case discussed with collaborating physician David Hinojosa who reviewed the assessment and plan. Chart, medications, labs, vital signs reviewed. Dictation was accomplished with the use of eriQoo voice recognition software, prone to medical misidentifications and grammatical errors. This is unintentional and the practitioner does try to identify and correct these, but some could still be present. Please do not hesitate to contact practitioner for clarification. All questions answered to patients satisfaction. Patient verbalized understanding of diagnosis and treatments explained. To call sooner prior to next visit it any questions/concerns arise. 06/26/2024 BMI 31.0-31.9,adul t (ICD-10 - Z68.31) Cherie is a 49-year-old female present today for weight management consultation. 06/26/2024: Wt: 179 lbs, BMI: 31.7 we will try to submit for Wegovy 0.25 mg weekly injections. Discussed lifestyle modifications in addition to weight loss medications. Discussed Seca scale where patient has average, but low muscle mass in upper body. Recommend 2 days of using Bowflex elliptical and 2 days of upper body strength training in addition to increasing protein with a daily goal of 80-100 g of protein daily. Recommend increasing steps with 8 to 10K steps daily. Plan to order baseline labs. Plan follow-up in 4 weeks. #Hormone replacement: Patient on estradiol patch and progesterone. Plan to continue with [employer] recommendations. Patient was reassured and welcomed to the practice. We discussed that we stress a hollistic medical approach with emphasis on lifestyle modification. Patient was informed that a healthy lifestyle with exercise and good eating habits can help reduce his risk of medical complications. Patient is explained that obesity increases his risk of diabetes, cardiovascular disease, or organ damage. We spent a lot of time discussing the relationship between food, exercise, sleep, mental health and obesity. Patient was counseled on the importance EATING local, organic food when possible. Patient was educated on clean 15 and dirty dozen. I provided information about reading books called The Food Rules by John Bernstein and Eat Fat Get Lean by Dr Vikash Sherman. Self education is important in the journey for weight management. Patient was offered diagnostic testing/ SECA scale. We want to measure visceral adiposity, advanced body composition, adverse lipids, fatty acid balance, risk for heart disease and atherosclerosis, markers of inflammation and genetic susceptibility. Patient was counseled on weight management and was advised to lose weight using A. Meal Replacement Products Patient was educated on the replacement products called optifast. This is a good way of taking fixed amount of calories. It has been shown in studies to be ineffective weight management tool. This however has to be coupled with lifestyle intervention as well as laboratory data and EKG monitoring. It is impossible to know how a person will tolerate complete meal replacement. The side effects of meal replacement and weight loss could include syncopal attacks, dizziness, gallstones, potential cholecystectomy, possible heart attack and even . The benefits of meal replacement would be potential weight loss but no guarantees can be made. Meal replacement products are not covered by insurance. Once the patient has bought these products we cannot return them B. Lifestyle management which includes several strategies as below 1. Eat a low carbohydrate good fat good protein diet. Eliminate refined carbohydrates from the diet. Limit sugared beverages. Eat local organic when possible. Cook your own meals. Read food labels. Focus on healthy snacks. Portion control and food with low glycemic index 2. Exercise regularly. Try to get at least 6000 steps a day. Use a predominant to track activity level. Consider using apps like 7 minute excercise, myfitnesspal, lose it, stick as needed for self-monitoring and weight management. Consider group exercises. Consider hiring a personal financial advisor. Regular exercise is griffin to sustainable health and prevents as a buffer against weight regain 3. Sleep is most important for healing. Try to sleep at least 6-8 hours a night. A good quality sleep needs a sleep ritual with ideal room temperature of around 68. It might help to take a shower and have no electronics in the room and sleep in a very dark room without artificial light. Start sleep routine and get up early in the morning and go to bed on time. 4. Make a social connection. Surround yourself with positive people with positive energy. Connect with friends and family. 5. Get into the habit of meditating and mindfulness while doing everything. 6. Go outside and connect with nature. C. Prescription medications Patient was educated on the use of prescription medications for medical weight loss. This is a growing list and includes phentermine, Topamax, Qsymia, contrave, belviq and saxenda, wegovy etc. All prescription medications could have side effects including but not limited to kidney stones, seizure disorder, cardiac arrhythmias, heart attack, pancreatitis, GI effects, Etc. Patient was encouraged to read the prescription insert and discuss with their pharmacist to make an informed decision about taking medication and know that these medications are being prescribed with good intentions and we do not know how a patient would react to her medication. Some medications are FDA approved for weight loss and there is also off label use depending on patient's inability to afford medications in an attempt to lose weight. D. Behavioral counseling was done to establish a relationship between food and an mood. Patient was provided information about local counseling and psychiatry and Dr Lisa at [facility]. We would like to cover regular topics and build on low glycemic eating exercise mindful eating, using yoga and meditation along with deep breathing and connecting with friends and family. E. MASS PAT reviewed, Patient's current medications were reviewed and opinion was given on medication that can cause weight gain and can be substituted F. Patient was assessed for risk with obesity including and not limiting to atherosclerosis, heart disease, stroke, kidney disease, restrictive lung disease, irritable bowel syndrome and overall mortality. Risk of developing prediabetes diabetes and metabolic syndrome was discussed G. Therapeutic plan: We have decided to make therapeutic plan which would include choosing wisely on calories restricting portion getting active, tracking weight, getting good quality sleep and working on time management H. Patient will follow up in 4 weeks for weight management Total time spent today was 60 minutes of which greater than 50% was spent on coordinating and counseling Case discussed with collaborating physician David Hinojosa who reviewed the assessment and plan. Chart, medications, labs, vital signs reviewed. Dictation was accomplished with the use of eriQoo voice recognition software, prone to medical misidentifications and grammatical errors. This is unintentional and the practitioner does try to identify and correct these, but some could still be present. Please do not hesitate to contact practitioner for clarification. All questions answered to patients satisfaction. Patient verbalized understanding of diagnosis and treatments explained. To call sooner prior to next visit it any questions/concerns arise. 07/25/2024 Obesity (BMI 30-39.9) (ICD-10 - E66.9) Cherie is a 49-year-old female present today for weight management follow up. 06/26/2024: Wt: 179 lbs, BMI: 31.7 we will try to submit for Wegovy 0.25 mg weekly injections. Discussed lifestyle modifications in addition to weight loss medications. Discussed Seca scale where patient has average, but low muscle mass in upper body. Recommend 2 days of using Bowflex elliptical and 2 days of upper body strength training in addition to increasing protein with a daily goal of 80-100 g of protein daily. Recommend increasing steps with 8 to 10K steps daily. Plan to order baseline labs. Plan follow-up in 4 weeks. #Hormone replacement: Patient on estradiol patch and progesterone. Plan to continue with [employer] recommendations. 07/25/2024: Wt: 173.2 lbs, BMI: 30.68 patient overall is lost 6 pounds, 5 pounds of fat mass and has gained 1 pound of muscle mass. Patient congratulated on effort. States she eats at least 100 g of protein daily. Has been consistent with exercise with Bowflex machine, cardio and 4 pound free weights for strength training. Patient overall doing well. Currently on Wegovy 0.25 mg weekly injections. Denies any side effects. Dors is adequate appetite suppression. Plan to continue current management. Plan follow-up in 4 weeks. # Patient reports labs obtained at [facility]. Not available for review today. Will obtain these. Total time spent is was 30 minutes, with more face to face time This medication is prescribed by or in consultation with a board certified obesity and weight management physician Dr. Joselyn Hinojosa The patient will continue exercise regimen with an emphasis on improving/increasing steps to at least 6,000-10,000 steps per day. Increasing cardio and strength training exercises as tolerated to improve weight loss and work on building muscle mass. Patient is committed to smarter eating with calorie counting and mindful eating. Limiting processed foods and carbohydrates and increasing leafy greens and lean proteins as well as fruits into their diet. Patient was counseled on the importance of eating local, organic food when possible. Patient has been counseled regarding effects of GLP/GIP-1 agonists and other FDA approved weight loss medications with regards to a multifactorial approach of weight loss as mentioned above and that the medication alone will not be sufficient to meet patients goals. We discussed holistic medication approach with emphasis on lifestyle modification. Discussed obesity as it increases risk of diabetes, cardiovascular disease, and/or organ damage. We spent a lot of time discussing the relationship between food, exercise, sleep, mental health, and obesity. We discussed the importance of having SECAs done every visit and having accountability done during these visits. That the scale is done to monitor not only weight loss but the body composition during medication management and healthy lifestyle changes. We discussed that if the patient is unable at times to financially afford this scale that we would rather waive the fee and have the scale done than have the patient not have the scale obtained. Will follow up with the patient in 4 weeks time to monitor weight loss. total time was 30 min, greater than 50 % of time was spent on care coordination Case discussed with collaborating physician Tomasa Hinojosa who reviewed the assessment and plan. Chart, medications, labs, vital signs reviewed. Dictation was accomplished with the use of eriQoo voice recognition software, prone to medical misidentifications and grammatical errors. This is unintentional and the practitioner does try to identify and correct these, but some could still be present. Please do not hesitate to contact practitioner for clarification. All questions answered to patients satisfaction. Patient verbalized understanding of diagnosis and treatments explained. To call sooner prior to next visit it any questions/concerns arise. 07/25/2024 BMI 30.0-30.9,adul t (ICD-10 - Z68.30) Cherie is a 49-year-old female present today for weight management follow up. 06/26/2024: Wt: 179 lbs, BMI: 31.7 we will try to submit for Wegovy 0.25 mg weekly injections. Discussed lifestyle modifications in addition to weight loss medications. Discussed Seca scale where patient has average, but low muscle mass in upper body. Recommend 2 days of using Bowflex elliptical and 2 days of upper body strength training in addition to increasing protein with a daily goal of 80-100 g of protein daily. Recommend increasing steps with 8 to 10K steps daily. Plan to order baseline labs. Plan follow-up in 4 weeks. #Hormone replacement: Patient on estradiol patch and progesterone. Plan to continue with [employer] recommendations. 07/25/2024: Wt: 173.2 lbs, BMI: 30.68 patient overall is lost 6 pounds, 5 pounds of fat mass and has gained 1 pound of muscle mass. Patient congratulated on effort. States she eats at least 100 g of protein daily. Has been consistent with exercise with Bowflex machine, cardio and 4 pound free weights for strength training. Patient overall doing well. Currently on Wegovy 0.25 mg weekly injections. Denies any side effects. Dors is adequate appetite suppression. Plan to continue current management. Plan follow-up in 4 weeks. # Patient reports labs obtained at [facility]. Not available for review today. Will obtain these. Total time spent is was 30 minutes, with more face to face time This medication is prescribed by or in consultation with a board certified obesity and weight management physician Dr. Joselyn Hinojosa The patient will continue exercise regimen with an emphasis on improving/increasing steps to at least 6,000-10,000 steps per day. Increasing cardio and strength training exercises as tolerated to improve weight loss and work on building muscle mass. Patient is committed to smarter eating with calorie counting and mindful eating. Limiting processed foods and carbohydrates and increasing leafy greens and lean proteins as well as fruits into their diet. Patient was counseled on the importance of eating local, organic food when possible. Patient has been counseled regarding effects of GLP/GIP-1 agonists and other FDA approved weight loss medications with regards to a multifactorial approach of weight loss as mentioned above and that the medication alone will not be sufficient to meet patients goals. We discussed holistic medication approach with emphasis on lifestyle modification. Discussed obesity as it increases risk of diabetes, cardiovascular disease, and/or organ damage. We spent a lot of time discussing the relationship between food, exercise, sleep, mental health, and obesity. We discussed the importance of having SECAs done every visit and having accountability done during these visits. That the scale is done to monitor not only weight loss but the body composition during medication management and healthy lifestyle changes. We discussed that if the patient is unable at times to financially afford this scale that we would rather waive the fee and have the scale done than have the patient not have the scale obtained. Will follow up with the patient in 4 weeks time to monitor weight loss. total time was 30 min, greater than 50 % of time was spent on care coordination Case discussed with collaborating physician Tomasa Hinojosa who reviewed the assessment and plan. Chart, medications, labs, vital signs reviewed. Dictation was accomplished with the use of eriQoo voice recognition software, prone to medical misidentifications and grammatical errors. This is unintentional and the practitioner does try to identify and correct these, but some could still be present. Please do not hesitate to contact practitioner for clarification. All questions answered to patients satisfaction. Patient verbalized understanding of diagnosis and treatments explained. To call sooner prior to next visit it any questions/concerns arise. 08/22/2024 BMI 29.0-29.9,adul t (ICD-10 - Z68.29) Cherie is a 49-year-old female present today for weight management follow up. 06/26/2024: Wt: 179 lbs, BMI: 31.7 we will try to submit for Wegovy 0.25 mg weekly injections. Discussed lifestyle modifications in addition to weight loss medications. Discussed Seca scale where patient has average, but low muscle mass in upper body. Recommend 2 days of using Bowflex elliptical and 2 days of upper body strength training in addition to increasing protein with a daily goal of 80-100 g of protein daily. Recommend increasing steps with 8 to 10K steps daily. Plan to order baseline labs. Plan follow-up in 4 weeks. #Hormone replacement: Patient on estradiol patch and progesterone. Plan to continue with [employer] recommendations. 07/25/2024: Wt: 173.2 lbs, BMI: 30.68 patient overall is lost 6 pounds, 5 pounds of fat mass and has gained 1 pound of muscle mass. Patient congratulated on effort. States she eats at least 100 g of protein daily. Has been consistent with exercise with Bowflex machine, cardio and 4 pound free weights for strength training. Patient overall doing well. Currently on Wegovy 0.25 mg weekly injections. Denies any side effects. Dors is adequate appetite suppression. Plan to continue current management. Plan follow-up in 4 weeks. 08/22/2024: Wt: 167.2 lbs, BMI: 29.61 currently on Wegovy 0.25 mg weekly injection. Overall doing well. Has lost 6 pounds overall, 7 pounds of fat mass and has gained a few ounces of muscle. Eating 100 g of protein daily. Exercising consistently throughout the week. Plan to continue current dose and follow-up in 4 weeks. Total time spent is was 30 minutes, with more face to face time This medication is prescribed by or in consultation with a board certified obesity and weight management physician Dr. Joselyn Hinojosa The patient will continue exercise regimen with an emphasis on improving/increasing steps to at least 6,000-10,000 steps per day. Increasing cardio and strength training exercises as tolerated to improve weight loss and work on building muscle mass. Patient is committed to smarter eating with calorie counting and mindful eating. Limiting processed foods and carbohydrates and increasing leafy greens and lean proteins as well as fruits into their diet. Patient was counseled on the importance of eating local, organic food when possible. Patient has been counseled regarding effects of GLP/GIP-1 agonists and other FDA approved weight loss medications with regards to a multifactorial approach of weight loss as mentioned above and that the medication alone will not be sufficient to meet patients goals. We discussed holistic medication approach with emphasis on lifestyle modification. Discussed obesity as it increases risk of diabetes, cardiovascular disease, and/or organ damage. We spent a lot of time discussing the relationship between food, exercise, sleep, mental health, and obesity. We discussed the importance of having SECAs done every visit and having accountability done during these visits. That the scale is done to monitor not only weight loss but the body composition during medication management and healthy lifestyle changes. We discussed that if the patient is unable at times to financially afford this scale that we would rather waive the fee and have the scale done than have the patient not have the scale obtained. Will follow up with the patient in 4 weeks time to monitor weight loss. total time was 30 min, greater than 50 % of time was spent on care coordination Case discussed with collaborating physician Tomasa Hinojosa who reviewed the assessment and plan. Chart, medications, labs, vital signs reviewed. Dictation was accomplished with the use of eriQoo voice recognition software, prone to medical misidentifications and grammatical errors. This is unintentional and the practitioner does try to identify and correct these, but some could still be present. Please do not hesitate to contact practitioner for clarification. All questions answered to patients satisfaction. Patient verbalized understanding of diagnosis and treatments explained. To call sooner prior to next visit it any questions/concerns arise. 08/22/2024 Overweight (BMI 25.0-29.9) (ICD-10 - E66.3) Cherie is a 49-year-old female present today for weight management follow up. 06/26/2024: Wt: 179 lbs, BMI: 31.7 we will try to submit for Wegovy 0.25 mg weekly injections. Discussed lifestyle modifications in addition to weight loss medications. Discussed Seca scale where patient has average, but low muscle mass in upper body. Recommend 2 days of using Bowflex elliptical and 2 days of upper body strength training in addition to increasing protein with a daily goal of 80-100 g of protein daily. Recommend increasing steps with 8 to 10K steps daily. Plan to order baseline labs. Plan follow-up in 4 weeks. #Hormone replacement: Patient on estradiol patch and progesterone. Plan to continue with [employer] recommendations. 07/25/2024: Wt: 173.2 lbs, BMI: 30.68 patient overall is lost 6 pounds, 5 pounds of fat mass and has gained 1 pound of muscle mass. Patient congratulated on effort. States she eats at least 100 g of protein daily. Has been consistent with exercise with Bowflex machine, cardio and 4 pound free weights for strength training. Patient overall doing well. Currently on Wegovy 0.25 mg weekly injections. Denies any side effects. Dors is adequate appetite suppression. Plan to continue current management. Plan follow-up in 4 weeks. 08/22/2024: Wt: 167.2 lbs, BMI: 29.61 currently on Wegovy 0.25 mg weekly injection. Overall doing well. Has lost 6 pounds overall, 7 pounds of fat mass and has gained a few ounces of muscle. Eating 100 g of protein daily. Exercising consistently throughout the week. Plan to continue current dose and follow-up in 4 weeks. Total time spent is was 30 minutes, with more face to face time This medication is prescribed by or in consultation with a board certified obesity and weight management physician Dr. Joselyn Hinojosa The patient will continue exercise regimen with an emphasis on improving/increasing steps to at least 6,000-10,000 steps per day. Increasing cardio and strength training exercises as tolerated to improve weight loss and work on building muscle mass. Patient is committed to smarter eating with calorie counting and mindful eating. Limiting processed foods and carbohydrates and increasing leafy greens and lean proteins as well as fruits into their diet. Patient was counseled on the importance of eating local, organic food when possible. Patient has been counseled regarding effects of GLP/GIP-1 agonists and other FDA approved weight loss medications with regards to a multifactorial approach of weight loss as mentioned above and that the medication alone will not be sufficient to meet patients goals. We discussed holistic medication approach with emphasis on lifestyle modification. Discussed obesity as it increases risk of diabetes, cardiovascular disease, and/or organ damage. We spent a lot of time discussing the relationship between food, exercise, sleep, mental health, and obesity. We discussed the importance of having SECAs done every visit and having accountability done during these visits. That the scale is done to monitor not only weight loss but the body composition during medication management and healthy lifestyle changes. We discussed that if the patient is unable at times to financially afford this scale that we would rather waive the fee and have the scale done than have the patient not have the scale obtained. Will follow up with the patient in 4 weeks time to monitor weight loss. total time was 30 min, greater than 50 % of time was spent on care coordination Case discussed with collaborating physician Tomasa Hinojosa who reviewed the assessment and plan. Chart, medications, labs, vital signs reviewed. Dictation was accomplished with the use of eriQoo voice recognition software, prone to medical misidentifications and grammatical errors. This is unintentional and the practitioner does try to identify and correct these, but some could still be present. Please do not hesitate to contact practitioner for clarification. All questions answered to patients satisfaction. Patient verbalized understanding of diagnosis and treatments explained. To call sooner prior to next visit it any questions/concerns arise. 08/22/2024 Encounter for examination of blood pressure without abnormal findings (ICD-10 - Z01.30) Cherie is a 49-year-old female present today for weight management follow up. 06/26/2024: Wt: 179 lbs, BMI: 31.7 we will try to submit for Wegovy 0.25 mg weekly injections. Discussed lifestyle modifications in addition to weight loss medications. Discussed Seca scale where patient has average, but low muscle mass in upper body. Recommend 2 days of using Bowflex elliptical and 2 days of upper body strength training in addition to increasing protein with a daily goal of 80-100 g of protein daily. Recommend increasing steps with 8 to 10K steps daily. Plan to order baseline labs. Plan follow-up in 4 weeks. #Hormone replacement: Patient on estradiol patch and progesterone. Plan to continue with [employer] recommendations. 07/25/2024: Wt: 173.2 lbs, BMI: 30.68 patient overall is lost 6 pounds, 5 pounds of fat mass and has gained 1 pound of muscle mass. Patient congratulated on effort. States she eats at least 100 g of protein daily. Has been consistent with exercise with Bowflex machine, cardio and 4 pound free weights for strength training. Patient overall doing well. Currently on Wegovy 0.25 mg weekly injections. Denies any side effects. Dors is adequate appetite suppression. Plan to continue current management. Plan follow-up in 4 weeks. 08/22/2024: Wt: 167.2 lbs, BMI: 29.61 currently on Wegovy 0.25 mg weekly injection. Overall doing well. Has lost 6 pounds overall, 7 pounds of fat mass and has gained a few ounces of muscle. Eating 100 g of protein daily. Exercising consistently throughout the week. Plan to continue current dose and follow-up in 4 weeks. Total time spent is was 30 minutes, with more face to face time This medication is prescribed by or in consultation with a board certified obesity and weight management physician Dr. Joselyn Hinojosa The patient will continue exercise regimen with an emphasis on improving/increasing steps to at least 6,000-10,000 steps per day. Increasing cardio and strength training exercises as tolerated to improve weight loss and work on building muscle mass. Patient is committed to smarter eating with calorie counting and mindful eating. Limiting processed foods and carbohydrates and increasing leafy greens and lean proteins as well as fruits into their diet. Patient was counseled on the importance of eating local, organic food when possible. Patient has been counseled regarding effects of GLP/GIP-1 agonists and other FDA approved weight loss medications with regards to a multifactorial approach of weight loss as mentioned above and that the medication alone will not be sufficient to meet patients goals. We discussed holistic medication approach with emphasis on lifestyle modification. Discussed obesity as it increases risk of diabetes, cardiovascular disease, and/or organ damage. We spent a lot of time discussing the relationship between food, exercise, sleep, mental health, and obesity. We discussed the importance of having SECAs done every visit and having accountability done during these visits. That the scale is done to monitor not only weight loss but the body composition during medication management and healthy lifestyle changes. We discussed that if the patient is unable at times to financially afford this scale that we would rather waive the fee and have the scale done than have the patient not have the scale obtained. Will follow up with the patient in 4 weeks time to monitor weight loss. total time was 30 min, greater than 50 % of time was spent on care coordination Case discussed with collaborating physician Tomasa Hinojosa who reviewed the assessment and plan. Chart, medications, labs, vital signs reviewed. Dictation was accomplished with the use of eriQoo voice recognition software, prone to medical misidentifications and grammatical errors. This is unintentional and the practitioner does try to identify and correct these, but some could still be present. Please do not hesitate to contact practitioner for clarification. All questions answered to patients satisfaction. Patient verbalized understanding of diagnosis and treatments explained. To call sooner prior to next visit it any questions/concerns arise. 06/26/2024 Hormone replacement therapy (HRT) (ICD-10 - Z79.890) Cherie is a 49-year-old female present today for weight management consultation. 06/26/2024: Wt: 179 lbs, BMI: 31.7 we will try to submit for Wegovy 0.25 mg weekly injections. Discussed lifestyle modifications in addition to weight loss medications. Discussed Seca scale where patient has average, but low muscle mass in upper body. Recommend 2 days of using Bowflex elliptical and 2 days of upper body strength training in addition to increasing protein with a daily goal of 80-100 g of protein daily. Recommend increasing steps with 8 to 10K steps daily. Plan to order baseline labs. Plan follow-up in 4 weeks. #Hormone replacement: Patient on estradiol patch and progesterone. Plan to continue with [employer] recommendations. Patient was reassured and welcomed to the practice. We discussed that we stress a hollistic medical approach with emphasis on lifestyle modification. Patient was informed that a healthy lifestyle with exercise and good eating habits can help reduce his risk of medical complications. Patient is explained that obesity increases his risk of diabetes, cardiovascular disease, or organ damage. We spent a lot of time discussing the relationship between food, exercise, sleep, mental health and obesity. Patient was counseled on the importance EATING local, organic food when possible. Patient was educated on clean 15 and dirty dozen. I provided information about reading books called The Food Rules by John Bernstein and Eat Fat Get Lean by Dr Vikash Sherman. Self education is important in the journey for weight management. Patient was offered diagnostic testing/ SECA scale. We want to measure visceral adiposity, advanced body composition, adverse lipids, fatty acid balance, risk for heart disease and atherosclerosis, markers of inflammation and genetic susceptibility. Patient was counseled on weight management and was advised to lose weight using A. Meal Replacement Products Patient was educated on the replacement products called optifast. This is a good way of taking fixed amount of calories. It has been shown in studies to be ineffective weight management tool. This however has to be coupled with lifestyle intervention as well as laboratory data and EKG monitoring. It is impossible to know how a person will tolerate complete meal replacement. The side effects of meal replacement and weight loss could include syncopal attacks, dizziness, gallstones, potential cholecystectomy, possible heart attack and even . The benefits of meal replacement would be potential weight loss but no guarantees can be made. Meal replacement products are not covered by insurance. Once the patient has bought these products we cannot return them B. Lifestyle management which includes several strategies as below 1. Eat a low carbohydrate good fat good protein diet. Eliminate refined carbohydrates from the diet. Limit sugared beverages. Eat local organic when possible. Cook your own meals. Read food labels. Focus on healthy snacks. Portion control and food with low glycemic index 2. Exercise regularly. Try to get at least 6000 steps a day. Use a predominant to track activity level. Consider using apps like 7 minute excercise, myfitnesspal, lose it, stick as needed for self-monitoring and weight management. Consider group exercises. Consider hiring a personal financial advisor. Regular exercise is griffin to sustainable health and prevents as a buffer against weight regain 3. Sleep is most important for healing. Try to sleep at least 6-8 hours a night. A good quality sleep needs a sleep ritual with ideal room temperature of around 68. It might help to take a shower and have no electronics in the room and sleep in a very dark room without artificial light. Start sleep routine and get up early in the morning and go to bed on time. 4. Make a social connection. Surround yourself with positive people with positive energy. Connect with friends and family. 5. Get into the habit of meditating and mindfulness while doing everything. 6. Go outside and connect with nature. C. Prescription medications Patient was educated on the use of prescription medications for medical weight loss. This is a growing list and includes phentermine, Topamax, Qsymia, contrave, belviq and saxenda, wegovy etc. All prescription medications could have side effects including but not limited to kidney stones, seizure disorder, cardiac arrhythmias, heart attack, pancreatitis, GI effects, Etc. Patient was encouraged to read the prescription insert and discuss with their pharmacist to make an informed decision about taking medication and know that these medications are being prescribed with good intentions and we do not know how a patient would react to her medication. Some medications are FDA approved for weight loss and there is also off label use depending on patient's inability to afford medications in an attempt to lose weight. D. Behavioral counseling was done to establish a relationship between food and an mood. Patient was provided information about local counseling and psychiatry and Dr Lisa at [facility]. We would like to cover regular topics and build on low glycemic eating exercise mindful eating, using yoga and meditation along with deep breathing and connecting with friends and family. E. MASS PAT reviewed, Patient's current medications were reviewed and opinion was given on medication that can cause weight gain and can be substituted F. Patient was assessed for risk with obesity including and not limiting to atherosclerosis, heart disease, stroke, kidney disease, restrictive lung disease, irritable bowel syndrome and overall mortality. Risk of developing prediabetes diabetes and metabolic syndrome was discussed G. Therapeutic plan: We have decided to make therapeutic plan which would include choosing wisely on calories restricting portion getting active, tracking weight, getting good quality sleep and working on time management H. Patient will follow up in 4 weeks for weight management Total time spent today was 60 minutes of which greater than 50% was spent on coordinating and counseling Case discussed with collaborating physician David Hinojosa who reviewed the assessment and plan. Chart, medications, labs, vital signs reviewed. Dictation was accomplished with the use of eriQoo voice recognition software, prone to medical misidentifications and grammatical errors. This is unintentional and the practitioner does try to identify and correct these, but some could still be present. Please do not hesitate to contact practitioner for clarification. All questions answered to patients satisfaction. Patient verbalized understanding of diagnosis and treatments explained. To call sooner prior to next visit it any questions/concerns arise. Plan Of Treatment Pending Test Test Name Order Date COMPREHENSIVE METABOLIC PANEL 06/26/2024 CBC (INCLUDES DIFF/PLT) 06/26/2024 HEMOGLOBIN A1c 06/26/2024 TSH+T3+Free T4+T3 Free 06/26/2024 Next Appt Details Provider Name:BRADLEY PITTS, 09/17/2024 01:45:00 PM, [address], [place], [id number], Insurance Providers Payer Name Payer Address Payer Phone Subscriber Number Group Number Insured Name Patient Relationship to Insured Coverage Start Date Coverage End Date [facility] [address] [place] [id number] CHERIE CASTILLO Self - patient is the insured Medical (General) History Medical History History ICD Code Weight gain
== END 2024-09-06 09:08 | disposition home or self-care (01) ==
LOC: HO.HMCC 08:29
PROVIDERS: PCP Internal Medicine; Visit Provider Internal Medicine
DX: Z00.00 Encounter for general adult medical examination without abnormal findings (principal); R31.29 Other microscopic hematuria; E66.3 Overweight

== ENCOUNTER 2024-09-06 08:28 | Outpatient (REF) | payer OTHER, SELFPAY ==
[2024-09-06 10:26] LABS: Appearance Urine Clear; Color Urine Yellow; Glucose Urine UA Negative (Negative); Leukocyte Esterase Urine Negative (Negative); Nitrite Urine Negative (Negative); PH 6.5 (5.0-9.0); UMIC TRIGGER UA YES; Urine Blood Trace (Negative); Urine Ketones Negative (Negative); Urine Protein Negative (Neg-Trace)
[2024-09-06 10:32] LABS: Bacteria Urine Trace (None Seen); Hyaline Casts Urine 0-2 /LPF (0-2); RBC Urine 0-2 /HPF (0-2); WBC Urine 0-5 /HPF (0-5)
== END 2024-09-06 08:29 | disposition home or self-care (01) ==
LOC: HO.HMGCLDS 08:28
PROVIDERS: PCP Internal Medicine; Visit Provider Internal Medicine
DX: Z00.00 Encounter for general adult medical examination without abnormal findings (principal); R31.29 Other microscopic hematuria; E66.3 Overweight; Z68.30 Body mass index [BMI] 30.0-30.9, adult
CPT/HCPCS: 81001; 96127

== ENCOUNTER 2024-10-10 15:06 | Outpatient (REF) | payer OTHER, SELFPAY ==
--- NOTE | ~2024-10-10 | US_ITS ---
EXAMINATION: US KIDNEY BILATERAL HISTORY: Z00.00 - Encounter for general adult medical examination without abnormal... TECHNIQUE: Real-time grayscale ultrasound imaging of the kidneys was performed and images were reviewed. COMPARISON: There are no prior studies available for comparison. FINDINGS: Right kidney: The right kidney measures 9.7 x 5.1 x 5.9 cm. Renal parenchymal echotexture and thickness are normal. There are no masses. There is no hydronephrosis or renal calculi. Left Kidney: The left kidney measures 10.0 x 4.9 x 6.6 cm. Renal parenchymal echotexture and thickness are normal. There are no masses. There is no hydronephrosis or renal calculi. US/US renal BI IMPRESSION: Unremarkable renal ultrasound. Electronically signed by: Hu Hallman MD 10/10/2024 03:29 PM EDT
--- OUTSIDE RECORDS SUMMARY | 2024-10-10 18:19 | XMS_ITS | Patient Health Record ---
Author Organization [facility] [address] Address [address] [place] [address] Care Team Providers Care Kiln Stacker Name Role Phone Nichelle Blanton Primary Care Provider BRADLEY Prnigle Unavailable [phone] Allergies Allergen (clinical drug ingredient) Drug/Non Drug Allergy documented on EMR Reaction Allergy Type Onset Date Status Penicillin Unknown Drug Allergy Active Results Component Value Reference Range Notes TSH+T3+Free T4+T3 Free Reviewed date:07/29/2024 08:17:59 AM Interpretation: Performing Lab:[facility], [address] [facility], Phone - [phone], Director - MDJodry Notes/Report: TSH-ICMA 2.0 Reference Range: Non- Adult 0.450-4.500 First Trimester 0.100-4.000 Second Trimester 0.200-4.000 Third Trimester 0.300-4.500 Triiodothyronine (T-3), Serum 90 Reference Range: Adults: 55 - 170 Free T-3 2.8 Reference Range: >=20y: 2.0 - 4.4 Free T4 by Dialysis/Drug And Alcohol Treatment Specialist 1.2 This test was developed and its performance characteristics determined by [facility]. It has not been cleared or approved by the Food and Drug Administration. Reference Range: Pubertal Children and Adults: 0.8 - 1.7 Comp. Metabolic Panel (14)-3 [id number] Reviewed date:07/29/2024 08:17:59 AM Interpretation: Performing Lab:[facility], [address], [place], Phone - [phone], Director - MDJodry Notes/Report: Glucose 84 70-99 [...] (SGPT) 19 0-32 IU/L CBC With Differential/Platel et-[id number] Reviewed date:07/29/2024 08:17:59 AM Interpretation: Performing Lab:[facility], [address], [place], Phone - [phone], Director - Nayla Notes/Report: WBC 4.3 3.4-10.8 [...] Immature Grans (Abs) 0.0 0.0-0.1 x10E3/uL Hemoglobin [id number] Reviewed date:07/29/2024 08:17:59 AM Interpretation: Performing Lab:[facility], [address], [place], Phone - [phone], Director - Nayla Notes/Report: Hemoglobin A1c 5.3 4.8-5.6 % . Prediabetes: 5.7 - 6.4 Diabetes: >6.4 Glycemic control for adults with diabetes: <7.0 Reason For Referral No Information Medications Medication SIG (Take, Route, Frequency, Duration) Notes Start Date End Date Status Multi For Her Active Prole 3 Active Wegovy 0.5 MG/0.5ML 0.5 mL Subcutaneous once weekly; Duration: 30 days 09/17/2024 Active B12 Active Wegovy 0.25 MG/0.5ML 0.5 ML SUBCUTANEOUS LY ONE TIME PER WEEK; Duration: 28 Active Ondansetron HCl 4 MG 1 tablet Orally Onc e a day; Duration: 30 days 06/27/2024 Active Vitamin D3 50 MCG (1999 UT) 1 capsule Orally Once a day Active Magnesium Glycinate 400mg qd Active Progesterone 100 MG TAKE 1 CAPSULE BY MO UTH EVERY DAY Oral; Duration: 90 Days Active Estradiol 0.05 MG/24HR APPLY 1 PATCH BY TRANSDERMAL ROUTE EVERY WEEK Transdermal; Duration: 84 Days Active Social History Tobacco Use: Social History Observation Description Date Details (start date - stop date) Never Smoker NA - NA Tobacco Use/Smoking Question Answer Notes Are you a nonsmoker Problems Problem Type SNOMED Code ICD Code Onset Dates Problem Status W/U Status Risk Notes Problem Adult health examination (910286925) Adult general medical exam (Z00.00) Active confirmed Problem Diabetes mellitus screening (216859863) Diabetes mellitus screening (Z13.1) Active confirmed Problem Obesity (795034464) Obesity (BMI 30-39.9) (E66.9) Active confirmed Problem Body mass index 30.00 to 34.99 (655288961943425 ) BMI 31.0-31.9,adult (Z68.31) Active confirmed Problem Body mass index 30+ - obesity (024458203) BMI 30.0-30.9,adult (Z68.30) Active confirmed Problem Overweight (285745853) Overweight (BMI 25.0-29.9) (E66.3) Active confirmed Problem Endocrine/metabo lic screening (260904414) Encounter for screening for endocrine disorder (Z13.29) Active confirmed Problem Lipid screening (069067094) Lipid screening (Z13.220) Active confirmed Vital Signs Heart Rate 70 /min 09/17/2024 Blood pressure diastolic 80 mm Hg 09/17/2024 Oximetry 98 % 09/17/2024 Height 63 in 09/17/2024 Blood pressure systolic 130 mm Hg 09/17/2024 Weight 168.9 lbs 09/17/2024 BMI 29.92 kg/m2 09/17/2024 Encounters Encounter Location Date Provider Diagnosis [facility] [address] [place], [place] 06/26/2024 BRADLEY GISSELLE Obesity (BMI 30-39.9 ) E66.9 ; BMI 31.0-31.9,adult Z68.31 and Hormone replacement therapy (HRT) Z79.[address] [facility] [address] [place] [address] 07/25/2024 BRADLEY GISSELLE Obesity (BMI 30-39.9 ) E66.9 and BMI 30.0-30.9,adult Z68.[address] [facility] [address] [place], [place] 08/22/2024 BRADLEY GISSELLE Overweight (BMI 25.0-29.9) E66.3 ; BMI 29.0-29.9,adult Z68.29 and Encounter for examination of blood pressure without abnormal findings Z01.[address] [facility] [address] [place], [place] 09/17/2024 BRADLEY GISSELLE BMI 29.0-29.9,adult Z68.29 ; Overweight (BMI 25.0-29.9) E66.3 and Encounter for examination of blood pressure without abnormal findings Z01.[address] [facility] [address] [place], [place] 06/27/2024 BRADLEY GISSELLE [facility] [address] [place], [place] 10/07/2024 BRADLEY GISSELLE [facility] [address] [place] [phone] 10/07/2024 BRADLEY PITTS [facility] [address] [place] [address] 10/10/2024 BRADLEY PITTS [facility] [address] [facility] [address] [place] [address] 06/26/2024 BRADLEY PITTS Assessments Encounter Date Diagnosis (ICD Code) Assessment [...] patch and progesterone. Plan to continue with SOCIAL MEDIA MARKETING ANALYST recommendations. Patient was reassured and welcomed to [...] Consider using apps like 7 minute excercise, [employer], lose it, stick as needed for self-monitoring and weight management. Consider group exercises. Consider hiring a personal computer network analyst. Regular exercise is griffin to sustainable health [...] counseling and psychiatry and Dr Lisa at [facility]. We would like to cover regular topics [...] Dictation was accomplished with the use of Link[employer] voice recognition software, prone to medical misidentifications [...] patch and progesterone. Plan to continue with SOCIAL MEDIA MARKETING ANALYST recommendations. Patient was reassured and welcomed to [...] Consider group exercises. Consider hiring a personal computer network analyst. Regular exercise is griffin to sustainable health [...] counseling and psychiatry and Dr Lisa at [facility]. We would like to cover regular topics [...] Dictation was accomplished with the use of [employer] voice recognition software, prone to medical misidentifications [...] patch and progesterone. Plan to continue with SOCIAL MEDIA MARKETING ANALYST recommendations. 07/25/2024: Wt: 173.2 lbs, BMI: 30.68 [...] Dictation was accomplished with the use of [employer] voice recognition software, prone to medical misidentifications [...] patch and progesterone. Plan to continue with SOCIAL MEDIA MARKETING ANALYST recommendations. 07/25/2024: Wt: 173.2 lbs, BMI: 30.68 [...] Dictation was accomplished with the use of [employer] voice recognition software, prone to medical misidentifications [...] patch and progesterone. Plan to continue with SOCIAL MEDIA MARKETING ANALYST recommendations. 07/25/2024: Wt: 173.2 lbs, BMI: 30.68 [...] Dictation was accomplished with the use of [employer] voice recognition software, prone to medical misidentifications [...] patch and progesterone. Plan to continue with SOCIAL MEDIA MARKETING ANALYST recommendations. 07/25/2024: Wt: 173.2 lbs, BMI: 30.68 [...] Dictation was accomplished with the use of [employer] voice recognition software, prone to medical misidentifications and grammatical errors. This is unintentional and the practitioner does try to identify and correct these, but some could still be present. Please do not hesitate to contact practitioner for clarification. All questions answered to patients satisfaction. Patient verbalized understanding of diagnosis and treatments explained. To call sooner prior to next visit it any questions/concerns arise. 09/17/2024 BMI 29.0-29.9,adul t (ICD-10 - Z68.29) Cherie [...] patch and progesterone. Plan to continue with SOCIAL MEDIA MARKETING ANALYST recommendations. 07/25/2024: Wt: 173.2 lbs, BMI: 30.68 [...] current dose and follow-up in 4 weeks. 09/17/24: Wt: 168.9 lbs, BMI: 29.92 patient currently on Wegovy 0.25 mg weekly injections. Denies any side effects. Reports that her appetite has slowly began to return. Overall has had a 1 pound weight gain. Discussed Seca scale. Patient consistent with exercise regimen. Would recommend increasing dose of Wegovy to 0.5 mg weekly injections. Plan to follow-up in 4 weeks. Total time spent [...] Dictation was accomplished with the use of [employer] voice recognition software, prone to medical misidentifications and grammatical errors. This is unintentional and the practitioner does try to identify and correct these, but some could still be present. Please do not hesitate to contact practitioner for clarification. All questions answered to patients satisfaction. Patient verbalized understanding of diagnosis and treatments explained. To call sooner prior to next visit it any questions/concerns arise. 09/17/2024 Overweight (BMI 25.0-29.9) (ICD-10 - E66.3) Cherie [...] patch and progesterone. Plan to continue with SOCIAL MEDIA MARKETING ANALYST recommendations. 07/25/2024: Wt: 173.2 lbs, BMI: 30.68 [...] current dose and follow-up in 4 weeks. 09/17/24: Wt: 168.9 lbs, BMI: 29.92 patient currently on Wegovy 0.25 mg weekly injections. Denies any side effects. Reports that her appetite has slowly began to return. Overall has had a 1 pound weight gain. Discussed Seca scale. Patient consistent with exercise regimen. Would recommend increasing dose of Wegovy to 0.5 mg weekly injections. Plan to follow-up in 4 weeks. Total time spent [...] Dictation was accomplished with the use of Link[employer] voice recognition software, prone to medical misidentifications and grammatical errors. This is unintentional and the practitioner does try to identify and correct these, but some could still be present. Please do not hesitate to contact practitioner for clarification. All questions answered to patients satisfaction. Patient verbalized understanding of diagnosis and treatments explained. To call sooner prior to next visit it any questions/concerns arise. 09/17/2024 Encounter for examination of blood pressure without [...] patch and progesterone. Plan to continue with SOCIAL MEDIA MARKETING ANALYST recommendations. 07/25/2024: Wt: 173.2 lbs, BMI: 30.68 [...] current dose and follow-up in 4 weeks. 09/17/24: Wt: 168.9 lbs, BMI: 29.92 patient currently on Wegovy 0.25 mg weekly injections. Denies any side effects. Reports that her appetite has slowly began to return. Overall has had a 1 pound weight gain. Discussed Seca scale. Patient consistent with exercise regimen. Would recommend increasing dose of Wegovy to 0.5 mg weekly injections. Plan to follow-up in 4 weeks. Total time spent [...] Dictation was accomplished with the use of [employer] voice recognition software, prone to medical misidentifications [...] patch and progesterone. Plan to continue with SOCIAL MEDIA MARKETING ANALYST recommendations. 07/25/2024: Wt: 173.2 lbs, BMI: 30.68 [...] Dictation was accomplished with the use of [employer] voice recognition software, prone to medical misidentifications [...] patch and progesterone. Plan to continue with SOCIAL MEDIA MARKETING ANALYST recommendations. Patient was reassured and welcomed to [...] Consider group exercises. Consider hiring a personal computer network analyst. Regular exercise is griffin to sustainable health [...] counseling and psychiatry and Dr Lisa at [facility]. We would like to cover regular topics [...] Dictation was accomplished with the use of [employer] voice recognition software, prone to medical misidentifications [...] 06/26/2024 Next Appt Details Provider Name:BRADLEY PITTS, 10/22/2024 03:15:00 PM, [address], [place], [address], Insurance Providers Payer Name Payer Address Payer Phone Subscriber Number Group Number Insured Name Patient Relationship to Insured Coverage Start Date Coverage End Date [facility] [address] [place] [phone] [id number] CHERIE CASTILLO Self - patient is the insured Medical (General) History Medical History History ICD Code Weight gain
== END 2024-10-10 15:07 | disposition home or self-care (01) ==
LOC: HO.HMGCX 15:06
PROVIDERS: PCP Internal Medicine; Visit Provider Internal Medicine
DX: R31.29 Other microscopic hematuria (principal)
CPT/HCPCS: 76775

== ENCOUNTER → 2024-10-10 15:10 | Outpatient (BNV) | payer OTHER, SELFPAY | PROVIDERS: PCP Internal Medicine; Visit Provider Radiology Diagnostic Radiology | DX: Z00.00 Encounter for general adult medical examination without abnormal findings (principal) | CPT/HCPCS: 76775 ==